=== PATIENT | female | born 1950 | race African-American/Black ===

== ENCOUNTER 2024-05-02 19:50 | Outpatient (OUT) | payer MEDICARE, MEDICAID, SELFPAY | END 2024-05-02 19:51 | disposition home or self-care (01) | LOC: SLEEP 19:52 | PROVIDERS: PCP Nurse Practitioner Family; Visit Provider Nurse Practitioner Family | DX: G47.33 Obstructive sleep apnea (adult) (pediatric) (principal) | CPT/HCPCS: 95810 ==